=== PATIENT | male | born 2005 | race Caucasian/White ===

== ENCOUNTER 2024-05-02 09:08 | Emergency (ER) | payer OTHER, SELFPAY ==
--- NOTE | ~2024-05-02 | XR_ITS ---
EXAMINATION: XR CHEST CLINICAL INFORMATION: Shortness of breath COMPARISON: None available. TECHNIQUE: 2 views of the chest were obtained. FINDINGS: No significant abnormality is noted involving the heart, lungs, mediastinum, bony thorax or soft tissues. XR/XR chest 2V IMPRESSION: Unremarkable examination.
[2024-05-02 09:13] VITALS: BP 130/70; PULSE 90; O2SAT 99
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
[2024-05-02 09:21] VITALS: BP 119/65; PULSE 86; RESP 16; TEMP 36.7; O2SAT 100; BMI 18.9
[2024-05-02 10:16] VITALS: BP 114/73; PULSE 72; RESP 16; O2SAT 100
--- NOTE | 2024-05-02 10:30 | PC.NURSE ---
pt alert and oriented but seems to be somewhat confused. per ems - they think pt is developmentally delayed. pt has never been to [facility] so there is no record to obtain information at this time. pt follows commands appropriately but sometimes does not answer questions appropriately. thought process seems to be scattered. per ems - pt was found wandering around [place] by PD. PD requesting psych eval. upon ED arrival - pt verbalizing he was at work in [place] where he became stressed/quit/started walking home to [place]. scratches noted to UE bilaterally as well as on chest wall. bleeding controlled. pt currently denies SI/HI. pt states he has a hx of wanting to hurt himself but not right not. pt seems to be in no apparent distress. no sob/wob noted. respirations even/unlabored. plan of care ongoing. call myers placed within reach.
--- NOTE | 2024-05-02 10:49 | PC.NURSE ---
chest xray completed. UA/labs obtained/sent to lab by [email or web address].
[2024-05-02 11:07] LABS: MANUAL DIFF FLAG NO
[2024-05-02 11:10] LABS: Appearance Urine Clear; Color Urine Yellow; Glucose Urine UA Negative (Negative); Leukocyte Esterase Urine Negative (Negative); Nitrite Urine Negative (Negative); Specific Gravity - Urine >= 1.030 (1.005-1.025); UMIC TRIGGER UACC YES; Urine Blood Negative (Negative); Urine Ketones 40 mg/dL (Negative); Urine Protein 30 (1+) mg/dL (Neg-Trace)
[2024-05-02 11:10] LABS: Basophils Percent Auto 0.4 % (0-2); Eosinophils Percent Auto 0.1 % (0-4); Hematocrit 46.1 % (42.0-52.0); Hemoglobin 16.4 g/dl (14.0-18.0); Imm Gran Abs Auto 0.03 X10*3/uL (0.00-0.03); Imm Gran Pct Auto 0.3 % (0.0-0.4); Lymphocytes Absolute Auto 1.6 X10*3/uL (1.2-4.9); Lymphocytes Percent Auto 16.3 % (20-40); Mean Corpuscular HGB Conc 35.6 g/dl (31.0-36.0); Mean Corpuscular Hemoglobin 29.4 pg (27.0-33.0); Mean Corpuscular Volume 82.8 fL (80.0-98.0); Monocytes Percent Auto 9.9 % (2-11); Neutrophils Absolute Auto 7.1 x10*3/uL (2.0-8.3); Platelet Count 235 X10*3/uL (160-400); Red Blood Count 5.57 X10*6/uL (4.60-5.80); Red Cell Distribution Width 12.5 % (11.0-16.0); White Blood Count 9.8 X10*3/uL (4.8-10.8)
[2024-05-02 11:12] LABS: Carbon Monoxide Refer to POC result
--- NOTE | 2024-05-02 11:12 | PC.NURSE ---
pt's family bedside at this time. blast furnace helper services being utilized.
[2024-05-02 11:13] LABS: VBG Base Excess 3.7 mmol/L; VBG HCO3 31 mmol/L (22-26); VBG pCO2 57 mmHg; VBG pH 7.34 (7.32-7.43); VBG pO2 35 mmHg
[2024-05-02 11:13] LABS: Venous Blood Gas Refer to POC result
[2024-05-02 11:15] LABS: Bacteria Urine None Seen (None Seen); Hyaline Casts Urine 0-2 /LPF (0-2); RBC Urine 0-2 /HPF (0-2); Squamous Epithelial Cell Urine 0-2 /HPF (0-2); WBC Urine 0-5 /HPF (0-5)
[2024-05-02 11:21] LABS: Amphetamine Screen Urine Not Detected (Not Detect); Barbiturates, Urine Not Detected (Not Detect); Benzodiazepines Screen Urine Not Detected (Not Detect); Buprenorphine Scr Not Detected (Not Detect); Cannabinoid Screen Urine Not Detected (Not Detect); Cocaine Screen Urine Not Detected (Not Detect); Fentanyl, urine Not Detected (Not Detect); Methadone Screen, Urine Not Detected (Not Detect); Opiate Screen Urine Not Detected (Not Detect); Oxycodone Screen Urine Not Detected (Not Detect); Phencyclidine Screen Urine Not Detected (Not Detect)
[2024-05-02 11:25] LABS: Alanine Aminotransferase 15 U/L (0-40); Alkaline Phosphatase 70 U/L (39-117); Anion Gap 13 (12-20); Aspartate Amino Transferase 24 U/L (5-37); Bilirubin Total 0.8 mg/dL (0.0-1.0); Blood Urea Nitrogen 18 mg/dL (9-16); Carbon Dioxide 30 mmol/L (22-29); Chloride 102 mmol/L (96-108); Creatinine Clr Calc Pharmacy 102.6; Estimated Glomerular Filt Rate > 60; Glucose Random 74 mg/dL (60-115); Potassium 3.7 mmol/L (3.3-5.1); Sodium 141 mmol/L (135-145)
[2024-05-02 11:27] LABS: Ethanol < 10 mg/dL
[2024-05-02 11:46] LABS: Influenza A PCR NEGATIVE (Negative); Influenza B PCR NEGATIVE (Negative); Resp Syncy Virus RNA Qual PCR NEGATIVE (Negative); SARS COV2 PCR INHOUSE NEGATIVE (Negative)
[2024-05-02 12:18] VITALS: BP 114/73; PULSE 72; RESP 16; TEMP 36.7; O2SAT 100
== END 2024-05-02 12:18 | disposition home or self-care (01) ==
PROVIDERS: Nurse Practitioner Family; Emergency Provider Emergency Medicine; PCP Pediatrics
DX: F84.0 Autistic disorder (principal); Z04.6 Encounter for general psychiatric examination, requested by authority; Z03.818 Encounter for observation for suspected exposure to other biological agents ruled out
CPT/HCPCS: 0241U; 36415; 71046; 80053; 80307; 81001; 82375; 82803; 85025; 99283